=== PATIENT | female | born 1985 | race Caucasian/White ===

== ENCOUNTER 2021-10-28 17:21 | Emergency (ER) | payer MEDICAID ==
[2021-10-28] MEDS ORDERED: Sodium Chloride 0.9% 1,000 ML IV ONE (17:56)
[2021-10-28] MEDS ORDERED: Ketorolac 30 MG/ML SDV IVPUSH ONE (17:56)
[2021-10-28] MEDS ORDERED: Ondansetron 4 MG/2 ML SDV IVPUSH ONE (17:56)
[2021-10-28 18:15] VITALS: BP 113/65; PULSE 92
[2021-10-28 18:29] LABS: METHAMPHETAMINES,URINE NEGATIVE (NEGATIVE)
[2021-10-28 18:30] LABS: AMPHETAMINES,URINE NEGATIVE (NEGATIVE); BARBITURATES,URINE NEGATIVE (NEGATIVE); BENZODIAZEPINE,URINE NEGATIVE (NEGATIVE); MDMA (ECSTASY), URINE NEGATIVE (NEGATIVE); METHADONE,URINE NEGATIVE (NEGATIVE); OPIATES,URINE NEGATIVE (NEGATIVE); OXYCODONE,URINE NEGATIVE (NEGATIVE); PHENCYCLIDINE,URINE NEGATIVE (NEGATIVE); TCA,URINE NEGATIVE (NEGATIVE)
[2021-10-28 18:38] LABS: ANION GAP 14.7 mEq/L (7-13); CHLORIDE,CL 104 mmol/L (98-107); SODIUM,NA 142 mmol/L (136-145)
== END 2021-10-28 20:34 | disposition home or self-care (01) ==
LOC: DL.ED 17:21
DX: G43.909 Migraine, unspecified, not intractable, without status migrainosus (principal); Z88.1 Allergy status to other antibiotic agents; Z79.899 Other long term (current) drug therapy; Z79.84 Long term (current) use of oral hypoglycemic drugs
CPT/HCPCS: 36415; 70450; 72125; 80053; 80305-QW; 80307; 81001; 81025; 83605; 83735; 84443; 85025; 86140; 87086; 96374; 96375; 99284-25; J1885; J2405; J7030